=== PATIENT | male | born 1990 | race Caucasian/White ===

== ENCOUNTER 2016-03-06 00:44 | Emergency (ER) | payer OTHER ==
[2016-03-06 02:05] VITALS: BP 148/79; PULSE 91; TEMP 98.1; BMI 31.5
--- NOTE | 2016-03-06 02:51 | PDOC ---
*Physical Exam - Vital Signs Last Vital Signs Temp Pulse Resp BP Pulse Ox 98.1 F 91 H 20 148/79 97 03/06/16 02:00 03/06/16 02:00 03/06/16 02:00 03/06/16 02:00 03/06/16 02:00 Medical Decision Making - Medical Decision Making 03/06/16 02:50 agree with care from FEATHERER Edmar *DC/Admit/Observation/Transfer Diagnosis at time of Disposition: Low back pain - Discharge Dispostion Disposition: HOME - Prescriptions Prescriptions: Cyclobenzaprine HCl [Flexeril -] 10 mg PO TID PRN #21 tablet PRN Reason: Pain Ibuprofen [Motrin -] 600 mg PO Q6H PRN #20 tablet PRN Reason: Back Pain Oxycodone HCl/Acetaminophen [Percocet 5-325 mg Tablet] 1 tab PO Q6H PRN #16 tablet MDD 4 tabs PRN Reason: Severe Pain - Referrals Referrals: Nils Johnson MD [Staff Physician] - - Patient Instructions Printed Discharge Instructions: DI for Low Back Pain Additional Instructions: FOLLOW UP WITH DR. JOHNSON (ORTHOPEDIC) REGARDING TODAYS VISIT. CALL TO SCHEDULE APPOINTMENT. TAKE MEDICATIONS PRESCRIBED. DO NOT DRIVE, DRINK ALCOHOL, OR OPERATE HEAVY MACHINERY WHILE TAKING PERCOCET. TAKE WARM SHOWERS. APPLY WARM COMPRESS TO AFFECTED AREA NEEDED. GET LOTS OF REST. Print Language: KHMER
[2016-03-06] MEDS ORDERED: CYCLOBENZAPRINE HCL 10 MG TABLET (FP) PO ONE (03:13)
[2016-03-06] MEDS ORDERED: OXYCODONE/APAP 5/325MG COMBO TABLET PO ONE (03:14)
[2016-03-06] MEDS ORDERED: IBUPROFEN 600 MG TABLET (FP) PO ONE ×2 (03:14→03:21)
[2016-03-06] MEDS ORDERED: CYCLOBENZAPRINE HCL 10 MG TABLET (FP) ONE (03:21)
[2016-03-06] MEDS ORDERED: OXYCODONE/APAP 5/325MG COMBO TABLET ONE (03:21)
--- NOTE | 2016-03-06 03:21 | PDOC ---
History of Present Illness - General Chief Complaint: Back Pain Stated Complaint: lower back pain Time Seen by Provider: 03/06/16 02:47 History Source: Patient Exam Limitations: No Limitations - History of Present Illness Initial Comments: 03/06/16 03:15 25yo Male patient presents to ED c/o low back pain after lifting heavy equipment for long periods of time while working. 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 No hx of previous injury. Occurred: reports: just prior to arrival Severity: reports: moderate Pain Location: reports: back Method of Injury: Yes: other (See HPI) Modifying Factors: improves with: None. worse with: cold therapy, immobilization, pain medication, rest, other Loss of Consciousness: no loss of consciousness Associated Symptoms (Fall): denies symptoms Past History - Travel Traveled outside of the country in the last 30 days: No Close contact w/someone who was outside of country & ill: No - Past Medical History Allergies/Adverse Reactions: Allergies Allergy/AdvReac Type Severity Reaction Status Date / Time No Known Allergies Allergy Verified 03/06/16 01:59 Home Medications: Ambulatory Orders Multivitamins [Multivit ([facility] Form[facility])] 1 tab PO DAILY 11/10/15 Cyclobenzaprine HCl [Flexeril -] 10 mg PO TID PRN #21 tablet 03/06/16 Ibuprofen [Motrin -] 600 mg PO Q6H PRN #20 tablet 03/06/16 Oxycodone HCl/Acetaminophen [Percocet 5-325 mg Tablet] 1 tab PO Q6H PRN #16 tablet MDD 4 tabs 03/06/16 Other medical history: denies - Immunization History Immunization Up to Date: Yes - Psycho/Social/Smoking Cessation Hx Anxiety: No Suicidal Ideation: No Smoking Status: No Smoking History: Never smoked Number of Cigarettes Smoked Daily: 0 Cigars Per Day: 0 Information on smoking cessation initiated: No Hx Alcohol Use: No Drug/Substance Use Hx: No Substance Use Type: None Trauma Specific PMHX - Complaint Specific PMHX Arthritis: No Back Injury: Yes Neck Injury: No Hx Sacro Iliac Joint Dysfunction: No Review of Systems - Review of Systems Able to Perform ROS?: Yes Is the patient limited Tuvaluan proficient: No Constitutional: No: Chills, Fever Respiratory: No: Cough, Orthopnea, Shortness of Breath Cardiac (ROS): No: Chest Pain ABD/GI: No: Constipated, Diarrhea, Nausea, Poor Appetite, Poor Fluid Intake, Vomiting : No: Burning, Dysuria, Hematuria Musculoskeletal: Yes: Back Pain Integumentary: No: Bruising, Erythema Neurological: No: Headache, Numbness, Paresthesia, Tingling, Tremors, Weakness, Dizziness *Physical Exam - Vital Signs Last Vital Signs Temp Pulse Resp BP Pulse Ox 98.1 F 91 H 20 148/79 97 03/06/16 02:00 03/06/16 02:00 03/06/16 02:00 03/06/16 02:00 03/06/16 02:00 - Physical Exam General Appearance: Yes: Nourished, Appropriately Dressed, Mild Distress Neck: positive: Trachea midline, Supple Respiratory/Chest: positive: Lungs Clear, Normal Breath Sounds Cardiovascular: positive: Regular Rhythm, Regular Rate Gastrointestinal/Abdominal: positive: Normal Bowel Sounds, Soft Lymphatic: negative: Adenopathy Musculoskeletal: positive: Normal Inspection, Other (Mild paraspinal tenderness on examination of L-S spine.). negative: CVA Tenderness Extremity: positive: Normal Capillary Refill, Normal Inspection, Normal Range of Motion Integumentary: positive: Normal Color, Dry, Warm Neurologic: positive: fur puller II-XII NML intact, Fully Oriented, Alert, Normal Mood/ Affect, Normal Response, Motor Strength 5/5 *DC/Admit/Observation/Transfer Diagnosis at time of Disposition: Low back pain Qualifiers: Chronicity: acute Back pain laterality: left Sciatica presence: without sciatica Qualified Code(s): M54.5 - Low back pain - Discharge Dispostion Disposition: HOME Condition at time of disposition: Stable Admit: No - Prescriptions Prescriptions: Cyclobenzaprine HCl [Flexeril -] 10 mg PO TID PRN #21 tablet PRN Reason: Pain Ibuprofen [Motrin -] 600 mg PO Q6H PRN #20 tablet PRN Reason: Back Pain Oxycodone HCl/Acetaminophen [Percocet 5-325 mg Tablet] 1 tab PO Q6H PRN #16 tablet MDD 4 tabs PRN Reason: Severe Pain - Referrals Referrals: Nils Johnson MD [Staff Physician] - - Patient Instructions Printed Discharge Instructions: DI for Low Back Pain Additional Instructions: FOLLOW UP WITH DR. JOHNSON (ORTHOPEDIC) REGARDING TODAYS VISIT. CALL TO SCHEDULE APPOINTMENT. TAKE MEDICATIONS PRESCRIBED. DO NOT DRIVE, DRINK ALCOHOL, OR OPERATE HEAVY MACHINERY WHILE TAKING PERCOCET. TAKE WARM SHOWERS. APPLY WARM COMPRESS TO AFFECTED AREA NEEDED. GET LOTS OF REST. Print Language: SWISS
== END 2016-03-06 03:32 | disposition home or self-care (01) ==
LOC: JER 00:44
DX: M54.5 Low back pain (principal); X50.0XXA Overexertion from strenuous movement or load, initial encounter; Y93.89 Activity, other specified; Y92.89 Other specified places as the place of occurrence of the external cause; Y99.0 Civilian activity done for income or pay; X02.8XXA Other exposure to controlled fire in building or structure, initial encounter
CPT/HCPCS: 99281-25

== ENCOUNTER 2016-05-07 08:32 | Emergency (ER) | payer OTHER ==
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
[2016-05-07 08:41] VITALS: BP 160/68; PULSE 89; TEMP 97.4; BMI 29.8
[2016-05-07] MEDS ORDERED: IBUPROFEN 600 MG TABLET (FP) PO ONE ×2 (08:47→08:51)
== END 2016-05-07 09:16 | disposition home or self-care (01) ==
LOC: JER 08:32
DX: M54.41 Lumbago with sciatica, right side (principal)
CPT/HCPCS: 99283-25